=== PATIENT | male | born 1935 | race Caucasian/White ===

== ENCOUNTER 2019-08-27 05:51 | Day surgery (SDC) | payer MEDICARE, OTHER ==
[2019-08-26 11:26] LABS: BASOPHILS # (AUTO) 0.1 X10'3 (0-0.2); BASOPHILS % (AUTO) 1.5 % (0-1); EOSINOPHILS # (AUTO) 0.1 X10'3 (0-0.9); EOSINOPHILS % (AUTO) 0.7 % (0-6); HEMATOCRIT 47.6 % (42.0-52.0); HEMOGLOBIN 16.6 g/dl (14.0-17.9); LYMPHOCYTES # (AUTO) 0.9 X10'3 (1.1-4.8); LYMPHOCYTES % (AUTO) 11.3 % (21-51); MEAN CORPUSCULAR HEMOGLOBIN 33.6 PG (27.0-31.0); MEAN CORPUSCULAR HGB CONC 34.9 g/dL (33.0-36.5); MEAN CORPUSCULAR VOLUME 96.2 FL (78-98); MEAN PLATELET VOLUME 8.3 FL (7.4-10.4); MONOCYTES # (AUTO) 0.1 X10'3 (0-0.9); MONOCYTES % (AUTO) 1.2 % (2-12); NEUTROPHILS # (AUTO) 6.8 X10'3 (1.8-7.7); NEUTROPHILS % (AUTO) 85.3 % (42-75); PLATELET COUNT 192 X10'3 (140-440); RED BLOOD COUNT 4.95 X10'6 (4.70-6.10); RED CELL DISTRIBUTION WIDTH 13.8 % (11.5-14.5); WHITE BLOOD COUNT 7.9 X10'3 (4.5-11.0)
[2019-08-26 11:31] LABS: ALBUMIN 4.2 G/DL (3.4-5.0); ANION GAP 10 (8-16); BLOOD UREA NITROGEN 14 MG/DL (7-18); BUN/CREATININE RATIO 12.3 (5.4-32.0); CALCIUM 8.9 MG/DL (8.5-10.1); CHLORIDE 107 MMOL/L (99-107); CREATININE 1.14 MG/DL (0.60-1.10); GLUCOSE 135 MG/DL (70-104); POTASSIUM 4.3 MMOL/L (3.5-5.1); SODIUM 142 MMOL/L (135-145); TOTAL CARBON DIOXIDE 24.6 MMOL/L (24-32); eGFR 61 ML/MIN
[2019-08-26 11:35] LABS: PARTIAL THROMBOPLASTIN TIME 31 SECONDS (22-32)
[2019-08-27] VITALS (12 sets, daily range): BP systolic 126–168; BP diastolic 60–97
[~2019-08-27] VITALS: Ht 182.9 cm; Wt 104.7 kg
[~2019-08-27 05:51] MED LIST: ASPI-1265 PO; ATOR40TA PO; CLOP75TA15 PO; DIPH-423 PO; HYDR12.5 PO; LISI-644 PO; NAPR220T67 PO; OMEP20CA11 PO
[2019-08-27] MEDS ORDERED: normal saline 1,000 ML IV SCH (06:05)
[2019-08-27] MEDS ORDERED: diphenhydrAMINE 25mg capsule PO PRN (06:05)
[2019-08-27] MEDS ORDERED: LORazepam 0.5 MG tablet PO PRN (06:05)
[2019-08-27] MEDS ORDERED: LIDOcaine/PRILOcaine 5gm cream TP STA (07:01)
[2019-08-27] MEDS ORDERED: AMLO5TAB PO (07:08)
[2019-08-27] MEDS ORDERED: OMEG1CAP13 PO (07:08)
[2019-08-27] MEDS ORDERED: RED600TA PO (07:08)
[2019-08-27] MEDS ORDERED: nitroGLYCERIN-Tridil 50MG/D5W 250 ML IV ONE (07:36)
[2019-08-27] MEDS ORDERED: verapamil 2.5 mg/ml inj IV ONE (07:36)
[2019-08-27] MEDS ORDERED: iohexol 350 MG/ML 50ML vial IV ONE (07:37)
[2019-08-27] MEDS ORDERED: heparin 1,000unit/ml 10ml vial 10 ML ONE (07:37)
[2019-08-27] MEDS ORDERED: iohexol 350MG/ML 100ml bottle IV ONE ×2 (07:37→08:43)
[2019-08-27] MEDS ORDERED: LIDOcaine 1% (10mg/ml)w/preservative injection 20ml MDV ONE (07:37)
[2019-08-27] MEDS ORDERED: fentaNYL/PF 50MCG/1 ML 2ML syringe ONE (07:37)
[2019-08-27] MEDS ORDERED: midazolam 2 mg/2 ml injection ONE (07:37)
[2019-08-27] MEDS ORDERED: HYDROmorphone 1 mg/ml syringe ONE (07:57)
[2019-08-27 09:05] LABS: ISTAT HGB ART 14.3 g/dl (14.0-18.0); ISTAT Hct ART 42 %PCV (42-52); ISTAT O2 SATURATION ARTERIAL 94 % (95-98); ISTAT SOURCE ART
[2019-08-27 09:05] LABS: ISTAT Hct MIX 39 %PCV (42-52); ISTAT O2 SATURATION MIX VENOUS 69 % (60-80); ISTAT SOURCE MIX
== END 2019-08-27 15:00 | disposition home or self-care (01) ==
LOC: SSTAY O 05:51
PROVIDERS: ATTEND Internal Medicine Cardiovascular Disease
DX: R94.39 Abnormal result of other cardiovascular function study (principal); I25.10 Atherosclerotic heart disease of native coronary artery without angina pectoris; I10 Essential (primary) hypertension; E78.5 Hyperlipidemia, unspecified; Z86.73 Personal history of transient ischemic attack (TIA), and cerebral infarction without residual deficits; Z98.890 Other specified postprocedural states; Z87.891 Personal history of nicotine dependence; Z88.8 Allergy status to other drugs, medicaments and biological substances; Z88.2 Allergy status to sulfonamides; Z79.82 Long term (current) use of aspirin; Z79.899 Other long term (current) drug therapy; Z79.01 Long term (current) use of anticoagulants
CPT/HCPCS: 36415; 80048; 82803; 85014; 85025; 85610; 85730; 93005; 93460; 99152; 99153; C1769; C1894; J1170; J1644; J2001; J2250; J3010; J7030; Q0163; Q9967; A4620; A5120; A6258; J3490

== ENCOUNTER 2021-09-01 15:05 | Emergency (ER) | payer MEDICARE, OTHER ==
[~2021-09-01] VITALS: Ht 182.9 cm; Wt 109.1 kg
[~2021-09-01 15:05] MED LIST changes: +AMLO5TAB PO; -ATOR40TA PO; -CLOP75TA15 PO; -HYDR12.5 PO; -LISI-644 PO; +OMEG1CAP13 PO; -OMEP20CA11 PO; +OMEP20CA15 PO; +RED600TA PO
[2021-09-01 15:22] VITALS: BP 213/95
[2021-09-01 16:25] LABS: BASOPHILS # (AUTO) 0.1 X10'3 (0-0.2); BASOPHILS % (AUTO) 1.7 % (0-1); EOSINOPHILS # (AUTO) 0.5 X10'3 (0-0.9); HEMATOCRIT 47.8 % (42.0-52.0); HEMOGLOBIN 16.4 g/dl (14.0-17.9); LYMPHOCYTES # (AUTO) 3.1 X10'3 (1.1-4.8); MEAN CORPUSCULAR HEMOGLOBIN 34.1 PG (27.0-31.0); MEAN CORPUSCULAR HGB CONC 34.3 g/dL (33.0-36.5); MEAN CORPUSCULAR VOLUME 99.6 FL (78-98); MEAN PLATELET VOLUME 8.5 FL (7.4-10.4); MONOCYTES # (AUTO) 0.6 X10'3 (0-0.9); MONOCYTES % (AUTO) 7.8 % (2-12); NEUTROPHILS # (AUTO) 3.1 X10'3 (1.8-7.7); NEUTROPHILS % (AUTO) 41.5 % (42-75); PLATELET COUNT 183 X10'3 (140-440); RED CELL DISTRIBUTION WIDTH 13.4 % (11.5-14.5); WHITE BLOOD COUNT 7.5 X10'3 (4.5-11.0)
[2021-09-01 16:47] LABS: ALANINE AMINOTRANSFERASE 24 U/L (12-78); ALBUMIN 3.8 G/DL (3.4-5.0); ALBUMIN/GLOBULIN RATIO 1.1 (1.1-1.5); ALKALINE PHOSPHATASE 97 IU/L (46-116); ANION GAP 7 (8-16); ASPARTATE AMINO TRANSFERASE 23 U/L (10-37); BLOOD UREA NITROGEN 13 MG/DL (7-18); BUN/CREATININE RATIO 10.3 (5.4-32.0); CALCIUM 8.7 MG/DL (8.5-10.1); CHLORIDE 108 MMOL/L (99-107); CREATININE 1.26 MG/DL (0.60-1.10); GLUCOSE 103 MG/DL (70-104); POTASSIUM 4.5 MMOL/L (3.5-5.1); SODIUM 145 MMOL/L (135-145); TOTAL CARBON DIOXIDE 29.7 MMOL/L (24-32); TOTAL PROTEIN 7.3 G/DL (6.4-8.2); eGFR 55 ML/MIN
[2021-09-04] MEDS ORDERED: ASPI-529 PO (14:23)
[2021-09-04] MEDS ORDERED: OMEG1CAP46 PO (14:28)
[2021-09-06] MEDS ORDERED: PANT40TA54 PO (10:03)
[2021-09-06] MEDS ORDERED: LOSA50TA64 PO (10:03)
[2021-09-06] MEDS ORDERED: NOR5T PO (10:03)
[2021-09-06] MEDS ORDERED: CLOP75TA34 PO (10:03)
[2021-09-06] MEDS ORDERED: NITR1PAT68 TD (10:03)
[2021-09-06] MEDS ORDERED: ATOR20TA66 PO (14:38)
== END 2021-09-01 22:37 | disposition left against medical advice (07) ==
LOC: ER 15:06
DX: R06.02 Shortness of breath (principal); Z53.21 Procedure and treatment not carried out due to patient leaving prior to being seen by health care provider
CPT/HCPCS: 36415; 71045; 80053; 83880; 84484; 85025; 93005

== ENCOUNTER 2022-06-16 03:42 | Emergency (ER) | payer MEDICARE, OTHER ==
[~2022-06-16] VITALS: Ht 182.9 cm; Wt 109.1 kg
[~2022-06-16 03:42] MED LIST changes: -AMLO5TAB PO; +CLOP75TA34 PO; -DIPH-423 PO; +LOSA50TA64 PO; -NAPR220T67 PO; +NITR1PAT68 TD; +NOR5T PO; -OMEG1CAP13 PO; +OMEG1CAP46 PO; -OMEP20CA15 PO; +PANT40TA54 PO; -RED600TA PO
[2022-06-16 04:25] LABS: BASOPHILS # (AUTO) 0.2 X10'3 (0-0.2); EOSINOPHILS # (AUTO) 0.3 X10'3 (0-0.9); EOSINOPHILS % (AUTO) 2.8 % (0-6); HEMATOCRIT 44.2 % (42.0-52.0); HEMOGLOBIN 15.5 g/dl (14.0-17.9); LYMPHOCYTES # (AUTO) 1.9 X10'3 (1.1-4.8); LYMPHOCYTES % (AUTO) 15.8 % (21-51); MEAN CORPUSCULAR HEMOGLOBIN 32.4 PG (27.0-31.0); MEAN CORPUSCULAR HGB CONC 35.1 g/dL (33.0-36.5); MEAN CORPUSCULAR VOLUME 92.4 FL (78-98); MEAN PLATELET VOLUME 8.4 FL (7.4-10.4); MONOCYTES # (AUTO) 0.6 X10'3 (0-0.9); MONOCYTES % (AUTO) 4.8 % (2-12); NEUTROPHILS # (AUTO) 8.7 X10'3 (1.8-7.7); NEUTROPHILS % (AUTO) 74.6 % (42-75); PLATELET COUNT 165 X10'3 (140-440); RED BLOOD COUNT 4.78 X10'6 (4.70-6.10); RED CELL DISTRIBUTION WIDTH 13.6 % (11.5-14.5); WHITE BLOOD COUNT 11.7 X10'3 (4.5-11.0)
[2022-06-16] MEDS ORDERED: mag hydrox/Alum hydrox/simeth 30ml oral suspension PO ONE (04:25)
[2022-06-16] MEDS ORDERED: pantoprazole 40 MG vial IV ONE (04:25)
[2022-06-16] MEDS ORDERED: ondansetron/PF 4mg/2ml inj IV ONE (04:25)
[2022-06-16] MEDS ORDERED: LIDOcaine Viscous 15ml cup MM ONE (04:25)
[2022-06-16 04:35] LABS: ALANINE AMINOTRANSFERASE 25 U/L (12-78); ALBUMIN/GLOBULIN RATIO 1.2 (1.1-1.5); ALKALINE PHOSPHATASE 92 IU/L (46-116); ANION GAP 11 (8-16); ASPARTATE AMINO TRANSFERASE 22 U/L (10-37); BLOOD UREA NITROGEN 22 MG/DL (7-18); BUN/CREATININE RATIO 16.5 (5.4-32.0); CALCIUM 9.4 MG/DL (8.5-10.1); CHLORIDE 107 MMOL/L (99-107); CREATININE 1.33 MG/DL (0.60-1.10); GLUCOSE 135 MG/DL (70-104); SODIUM 142 MMOL/L (135-145); TOTAL CARBON DIOXIDE 24.3 MMOL/L (24-32); TOTAL PROTEIN 7.4 G/DL (6.4-8.2); eGFR 51 ML/MIN
[2022-06-16] MEDS ORDERED: pantoprazole 40MG/NS 100ML BAG 100 ML IV ONE (04:35)
[2022-06-16 04:43] LABS: AMYLASE 34 U/L (25-115); LIPASE 190 U/L (73-393)
[2022-06-16 10:51] VITALS: BP 136/86
== END 2022-06-16 11:17 | disposition home or self-care (01) ==
LOC: ER 03:43
DX: R10.13 Epigastric pain (principal); R07.9 Chest pain, unspecified; I11.9 Hypertensive heart disease without heart failure; E78.00 Pure hypercholesterolemia, unspecified; Z88.2 Allergy status to sulfonamides; Z88.8 Allergy status to other drugs, medicaments and biological substances; Z79.899 Other long term (current) drug therapy; Z79.82 Long term (current) use of aspirin
CPT/HCPCS: 36415; 71045; 74176; 80053; 82150; 83690; 83880; 84484; 85025; 93005; 96374; 96375; 99285; C9113; J2405

== ENCOUNTER 2025-03-03 08:49 | Day surgery (SDC) | payer MEDICARE, OTHER ==
[2025-03-02 09:17] LABS: BASOPHILS # (AUTO) 0.1 X10'3 (0-0.2); EOSINOPHILS # (AUTO) 0.4 X10'3 (0-0.9); EOSINOPHILS % (AUTO) 4.3 % (0-6); HEMATOCRIT 46.5 % (42.0-52.0); LYMPHOCYTES # (AUTO) 2.5 X10'3 (1.1-4.8); LYMPHOCYTES % (AUTO) 25.1 % (21-51); MEAN CORPUSCULAR HEMOGLOBIN 32.8 PG (27.0-31.0); MEAN CORPUSCULAR HGB CONC 34.5 g/dL (33.0-36.5); MEAN CORPUSCULAR VOLUME 95.3 FL (78-98); MEAN PLATELET VOLUME 8.4 FL (7.4-10.4); MONOCYTES # (AUTO) 0.6 X10'3 (0-0.9); MONOCYTES % (AUTO) 6.4 % (2-12); NEUTROPHILS # (AUTO) 6.3 X10'3 (1.8-7.7); NEUTROPHILS % (AUTO) 63.2 % (42-75); PLATELET COUNT 174 X10'3 (140-440); RED BLOOD COUNT 4.88 X10'6 (4.70-6.10); RED CELL DISTRIBUTION WIDTH 13.8 % (11.5-14.5); WHITE BLOOD COUNT 9.9 X10'3 (4.5-11.0)
[2025-03-02 09:26] LABS: APTT 30 SECONDS (22-32); INR 1.1 INR; PROTHROMBIN TIME 10.8 SECONDS (9.0-12.0)
[2025-03-02 09:32] LABS: ALBUMIN 4.1 G/DL (3.4-5.0); ANION GAP 6 (8-16); BLOOD UREA NITROGEN 12 MG/DL (7-18); CALCIUM 8.8 MG/DL (8.5-10.1); CHLORIDE 107 MMOL/L (99-107); GLUCOSE 113 MG/DL (70-104); POTASSIUM 4.1 MMOL/L (3.5-5.1); SODIUM 141 MMOL/L (135-145); TOTAL CARBON DIOXIDE 27.6 MMOL/L (24-32); eGFR 57 ML/MIN
[~2025-03-03] VITALS: Ht 182.9 cm; Wt 102.3 kg
[2025-03-03] VITALS (12 sets, daily range): BP systolic 139–199; BP diastolic 55–102; PULSE 53–63; RESP 16; TEMP 97.4; O2SAT 90–96
[2025-03-03] MEDS ORDERED: ceFAZolin 2gm in dextrose, iso 50 ML IV ONE (09:10)
[2025-03-03] MEDS ORDERED: CLOP75TA33 PO (09:43)
[2025-03-03] MEDS ORDERED: ROSU10TA72 PO (09:45)
[2025-03-03] MEDS ORDERED: LOSA50TA64 PO (09:45)
[2025-03-03] MEDS ORDERED: LIDOcaine 1% W/epiNEPHrine 1:100,000 20ml vial ONE (12:12)
[2025-03-03] MEDS ORDERED: midazolam 1 mg/ML 2ml injection ONE ×2 (12:12→12:38)
[2025-03-03] MEDS ORDERED: fentaNYL/PF 50MCG/1 ML 2ML syringe ONE (12:13)
[2025-03-03] MEDS ORDERED: ceFAZolin 1000mg inj ONE (12:13)
[2025-03-03] MEDS ORDERED: HYDROmorphone 1 mg/ml syringe ONE (12:38)
[2025-03-03] MEDS ORDERED: diphenhydrAMINE 50 mg/ml inj ONE (12:59)
[2025-03-03] MEDS ORDERED: HYDROcodone/acetaminophen 5mg/325mg tablet PO PRN (14:30)
[2025-03-03] MEDS ORDERED: CEPH-585 PO (14:36)
[2025-03-03] MEDS: vancomycin/NS 1 GM ADD-VANTAGE 250 ML X 1 DOSE IV ONE (16:04)
[2025-03-03] MEDS: HYDROcodone/acetaminophen 10/325mg tab PO PRN (17:41)
[2025-03-03] MEDS: losartan 50mg tablet PO ONE (18:00)
== END 2025-03-03 19:05 | disposition home or self-care (01) ==
LOC: SSTAY O 08:49
PROVIDERS: ATTEND Internal Medicine Cardiovascular Disease
DX: I49.5 Sick sinus syndrome (principal); R00.1 Bradycardia, unspecified; I25.10 Atherosclerotic heart disease of native coronary artery without angina pectoris; I10 Essential (primary) hypertension; E78.5 Hyperlipidemia, unspecified; Z79.899 Other long term (current) drug therapy; Z98.890 Other specified postprocedural states; Z79.82 Long term (current) use of aspirin; Z80.8 Family history of malignant neoplasm of other organs or systems; Z88.2 Allergy status to sulfonamides; Z88.8 Allergy status to other drugs, medicaments and biological substances; Z79.01 Long term (current) use of anticoagulants
CPT/HCPCS: 33208; 36415; 71046; 80048; 85025; 85610; 85730; 93005; 99152; 99153; A4565; C1785; C1898; J0690; J1171; J1200; J2250; J3370; J3490; J7030; Z7610; J3010